=== PATIENT | female | born 2000 | race Caucasian/White ===

== ENCOUNTER 2025-04-10 10:52 | Outpatient (OUT) | payer OTHER, SELFPAY ==
--- NOTE | 2025-04-10 11:15 | XR_ITS ---
[place] [id number] Patient Name: EMILEE BOLES MRN: [id number] date: 2000 Sex: F Assigned Patient Location: [facility] Current Patient Location: [facility] Accession/Order Number: [id number] Exam Date: 04/10/2025 12:12 Report Date: 04/10/2025 12:13 At the request of: NATHAN MELISSA DO Procedure: XR chest 2V XR chest 2V 04/10/2025 11:37 AM SIGNS AND SYMPTOMS: ^Pre Op ^N PROTOCOL: Frontal and lateral radiograph of the chest COMPARISON: None FINDINGS: The trachea is midline. The heart and mediastinal structures are within normal limits. The lung parenchyma is clear. The bony thorax is intact. XR/XR chest 2V IMPRESSION: No acute cardiopulmonary pathology. Impression dictated by: Nitin Brady M.D. 04/10/2025 12:13 PM Dictation Location: [place] [address] Electronically authenticated by: [id number] Y Date: 04/10/2025 12:13
== END 2025-04-10 10:53 | disposition home or self-care (01) ==
PROVIDERS: PCP Family Medicine; Visit Provider Obstetrics & Gynecology
DX: Z01.810 Encounter for preprocedural cardiovascular examination (principal); R10.2 Pelvic and perineal pain; N89.8 Other specified noninflammatory disorders of vagina; Z98.890 Other specified postprocedural states
CPT/HCPCS: 71046; 93005

== ENCOUNTER 2025-04-17 07:09 | Day surgery (SDC) | payer OTHER, SELFPAY ==
--- NOTE | 2025-04-10 10:58 | ECG_ITS ---
[facility] Test Date: 2025-04-10 Pat Name: EMILEE BOLES Department: Room: - Gender: Female [employer]: : 2000 Requested By: NATHAN MELISSA Order Number: [id number] [place] MD: SHAHID LIM M.D. Measurements Intervals [place] Rate: 79 P: 41 PA: 151 QRS: 69 QRSD: 80 T: 56 QT: 346 QTc: 399 Interpretive Statements SINUS RHYTHM Normal ECG No previous ECG available for comparison Electronically Signed On 04-11-2025 7:42:01 EDT by SHAHID LIM M.D.
[2025-04-10 11:31] VITALS: BP 121/84; PULSE 78; TEMP 36.3; O2SAT 99; BMI 22.7
[2025-04-17 07:15] VITALS: BP 127/89; PULSE 97; O2SAT 99; BMI 23.1; BMI 29.4
[2025-04-17 07:16] LABS: Basophils Percent Auto 0.9 % (0.2-2.0); Eosinophils Absolute Auto 0.1 10^3/uL (0.0-0.7); Eosinophils Percent Auto 2.3 % (0.9-7.0); Hematocrit 35.2 % (36.0-48.0); Hemoglobin 11.6 g/dL (12.0-16.0); Lymphocytes Absolute Auto 1.5 10^3/uL (1.2-3.8); Lymphocytes Percent Auto 34.8 % (20.5-60.0); Mean Corpuscular Hemoglobin 28.8 pg (26.7-34.0); Mean Corpuscular Volume 87.3 fL (81.0-99.0); Mean Platelet Volume 9.8 fL (9.5-13.5); Monocytes Absolute Auto 0.4 10^3/uL (0.3-0.8); Monocytes Percent Auto 9.3 % (1.7-12.0); Neutrophils Absolute Auto 2.3 10^3/uL (1.4-6.5); Neutrophils Percent Auto 52.7 % (43.0-75.0); Platelet Count 207 10^3/uL (150-450); Red Blood Count 4.03 10^6/uL (4.20-5.40); Red Cell Distribution Width 13.7 % (11.0-15.0); White Blood Count 4.4 10^3/uL (4.0-11.0)
[2025-04-17 07:36] VITALS: TEMP 36.7
[2025-04-17 07:39] LABS: HCG Quantitative <1 mIU/mL
[2025-04-17] MEDS: LACTATED RINGER'S SOLUTION 1,000 ML 50 ML IV (07:39)
--- NOTE | 2025-04-17 09:58 | PM.ONB ---
Brief Operative Note Date of procedure: 04/17/25 Pre-op diagnosis general: vulvodynia Post-op diagnosis: same as pre-op Procedure: NAME OF PROCEDURE: [ repair of episotomy scar] PROCEDURE:? The patient was taken back to the OR where she was given spinal anesthesia without difficulty.? She was then placed in the dorsal lithotomy position.? The episotomy scar was identified and a knife was used midline to release the tissue, after the tissue was released exellent hemostasis was performed using bovie the vaginal mucosa and perineal edges were reapproximated using 4-0 vicryl. The patient had excellent hemostasis.? This repair was performed without difficulty.? The patient was then taken out of the dorsal lithotomy position and placed in the supine position and taken to recovery.? Sponge, lap and needle counts were correct x2.? The patient tolerated this procedure well. Anesthesia: MAC Surgeon: Ilya García Estimated blood loss (mL): 5 Pathology: none sent Condition: stable Disposition: PACU Urinary Catheter Management Urinary Catheter Management Straight: Cath placed during this visit: no
[2025-04-17] MEDS: BACITRACIN OINTMENT 28.4 GM TUBE 1 APPLIC TOPICAL (10:00)
[2025-04-17 10:01] VITALS: BP 135/103; PULSE 109; TEMP 36.3; O2SAT 98
[2025-04-17 10:16] VITALS: BP 110/85; PULSE 83; O2SAT 97
--- NOTE | 2025-04-17 10:27 | PC.NURSE ---
Peripad with scant amount bloody drainage
[2025-04-17 10:40] VITALS: BP 125/96; PULSE 84; O2SAT 100
[2025-04-17] MEDS: HYDROCODONE/ACET 5-325 MG TABLET 1 TAB PO (10:40)
--- NOTE | 2025-04-17 10:59 | PC.NURSE ---
peripad with scant bloody drainage
--- NOTE | 2025-04-17 11:00 | PC.NURSE ---
Up to bathroom and voided clear yellow without difficulty
== END 2025-04-17 11:06 | disposition home or self-care (01) ==
PROVIDERS: PCP Family Medicine; Visit Provider Obstetrics & Gynecology
PROC: (CPT 940; principal; 2025-04-17 08:30)
DX: R10.2 Pelvic and perineal pain (principal); N89.8 Other specified noninflammatory disorders of vagina; Z98.890 Other specified postprocedural states; F17.290 Nicotine dependence, other tobacco product, uncomplicated; I10 Essential (primary) hypertension
CPT/HCPCS: 56800; 36415; 84702; 85025; J1100; J1885; J2250; J2405; J2704; J3010